=== PATIENT | male | born 1950 | race Caucasian/White ===

== ENCOUNTER → 2016-12-13 | Outpatient (CLI) | payer BC ==
[2016-12-13 09:37] LABS: CALCIUM 8.7 mg/dl (8.5-10.1)
[2016-12-13 09:41] LABS: ALT/SGPT 40 U/L (12-78); AST/SGOT 30 U/L (15-37); BLOOD UREA NITROGEN 13 mg/dl (7-18); BUN/CREATININE RATIO 14.3 (10-20); CARBON DIOXIDE 27 mmol/L (21-32); CHLORIDE 105 mmol/L (98-107); CHOLESTEROL 146 mg/dl (0-200); CREATININE 0.88 mg/dl (0.60-1.40); GLUCOSE 84 mg/dl (70-99); POTASSIUM 4.4 mmol/L (3.5-5.1); SODIUM 139 mmol/L (136-145); TRIGLYCERIDES 116 mg/dl (0-150); VERY LOW DENSITY LIPOPROT CALC 23 mg/dl
[2016-12-13 09:51] LABS: CHOLESTEROL/HDL RATIO 2.8; FERRITIN 149.9 ng/ml (8.0-388.0); HDL CHOLESTEROL 52 mg/dl; LDL CHOLESTEROL CALCULATED 71 mg/dl
[2016-12-13 09:54] LABS: ESTIMATED AVERAGE GLUCOSE 117 mg/dl; HA1C FLAG Normal (Normal)
[2016-12-13 10:10] LABS: RATIO 9.2 mcg/mg (0-30.0)
== END | disposition home or self-care (01) ==
LOC: C.LAB 07:31
DX: E11.9 Type 2 diabetes mellitus without complications (principal); I10 Essential (primary) hypertension; E78.5 Hyperlipidemia, unspecified